=== PATIENT | female | born 1960 | race Caucasian/White ===

== ENCOUNTER 2017-11-25 15:47 | Outpatient (CLI) | payer MEDICARE ==
--- NOTE | 2017-11-25 17:58 | RAD ---
3 VIEWS LUMBAR SPINE: Date: 11/25/17 HISTORY: Lumbar radiculopathy. COMPARISON: None. FINDINGS: Standing neutral, standing flexion, and standing extension of lumbar spine demonstrate five lumbar-ty pe vertebral bodies. Mild to moderate degenerative change at L1-L2. Note, there are six lumbar-type v ertebral bodies. In the neutral position, there is 4.0 mm retrolisthesis of L2 upon L3, 4.0 mm of ant erolisthesis of L5 upon L6. Upon flexion, there is 4.0 mm of anterolisthesis of L2 upon L3, 4.0 mm an terolisthesis of L5 upon L6. Upon extension, there is 4.0 mm of anterolisthesis of L2 upon L3. Norman listhesis of L5 upon L6 is reduced. IMPRESSION: Degenerative changes and spondylolisthesis as above. POS: CHARLES
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
== END 2017-11-25 15:48 | disposition home or self-care (01) ==
LOC: TBSIIMAG 15:47
PROVIDERS: ATTEND Anesthesiology Pain Medicine
DX: M47.26 Other spondylosis with radiculopathy, lumbar region (principal); M43.16 Spondylolisthesis, lumbar region
CPT/HCPCS: 72100; 72148